=== PATIENT | female | born 2000 | race American Indian/Alaskan Native ===

== ENCOUNTER 2021-01-26 14:54 | Emergency (ER) | payer SELFPAY ==
[2021-01-26 15:29] VITALS: BP 104/67
== END 2021-01-26 20:57 | disposition left against medical advice (07) ==
LOC: ED 14:54
DX: M54.2 Cervicalgia (principal); M54.6 Pain in thoracic spine; Z53.21 Procedure and treatment not carried out due to patient leaving prior to being seen by health care provider